=== PATIENT | female | born 1975 | race Caucasian/White ===

== ENCOUNTER 2020-01-04 16:32 | Emergency (ER) | payer SELFPAY ==
[~2020-01-04] VITALS: Ht 160 cm; Wt 78.5 kg
[2020-01-04 16:42] VITALS: Ht 160 cm; Wt 78.5 kg
[2020-01-04 17:35] VITALS: BP 114/83
== END 2020-01-04 17:35 | disposition home or self-care (01) ==
LOC: ED 16:32
DX: B34.9 Viral infection, unspecified (principal)